=== PATIENT | female | born 1955 ===

== ENCOUNTER 2016-07-10 09:49 | Inpatient (IN) | payer OTHER ==
[~2016-07-10 09:49] MED LIST: Buffered Lidocaine 1% SYR 3ML* 3 ML/SYR SYRINGE INTRADERM ONE; Famotidine TAB* 20 MG ONE; Famotidine TAB* 20 MG PO ONE; Gabapentin CAP(*) 300 MG ONE; Gabapentin CAP(*) 400 MG PO ONE; Ibuprofen TAB* 400 MG ONE; Ibuprofen TAB* 800 MG PO ONE; Metoclopramide TAB* 10 MG ONE; Metoclopramide TAB* 10 MG PO ONE; Sodium Citrate/Citric Acid* 15 ML UDC ONE; Sodium Citrate/Citric Acid* 15 ML UDC PO ONE; ceFAZolin 2 GM PREMIX(*) 2 GM/50 ML BAG IVPB ONE
[2016-07-10] MEDS ORDERED: fentaNYL* 50 MCG/ML 2 ML VIAL (100 MCG VIAL) ONE (12:13)
[2016-07-10] MEDS ORDERED: Midazolam* 1 MG/ML 5 ML VIAL (5 MG) ONE (12:13)
[2016-07-10] MEDS ORDERED: Morphine PF AMP (0.5MG/ML)* 5 MG/10 ML AMP ONE (12:15)
[2016-07-10] MEDS ORDERED: Propofol* 500 MG/50 ML BTL ONE (12:35)
[2016-07-10] MEDS ORDERED: EPHEDrine (Pressors)* 50 MG/ML VIAL ONE (12:42)
[2016-07-10] MEDS ORDERED: Ondansetron INJ* 2 MG/ML VIAL IV PRN (13:08)
[2016-07-10] MEDS ORDERED: DiMENhydriNATE IV* 50 MG/ML VIAL IV PUSH PRN (13:08)
[2016-07-10] MEDS ORDERED: Naloxone* 0.4 MG/ML 1 ML VIAL IV PRN (13:08)
[2016-07-10] MEDS ORDERED: Nalbuphine* 20 MG/ML 1 ML VIAL IV PRN (13:08)
[2016-07-10] MEDS ORDERED: Acetaminophen IV 1GM/100ML * 10 MG/ML VIAL IVPB ONE (13:13)
[2016-07-10] MEDS ORDERED: Bisacodyl SUPP* 10 MG SUPP PR PRN (14:52)
[2016-07-10] MEDS ORDERED: Polyethylene Glycol 3350* 17 GM PACKET PO PRN (14:52)
--- NOTE | 2016-07-10 15:34 | RAD ---
INDICATION: Status post right hip arthroplasty COMPARISON: June 14, 2016 TECHNIQUE: A single AP view of the pelvis is submitted. FINDINGS: Osseous structures: There is interval right hip arthroplasty. The prosthesis appears normally seated on the AP view. There is an existing left hip prosthesis which is imaged in part SI joints and symphysis: Intact Soft tissues: Soft tissue changes compatible with recent hip arthroplasty Other: None IMPRESSION: RIGHT HIP ARTHROPLASTY.
[2016-07-10] MEDS ORDERED: Ondansetron INJ* 2 MG/ML VIAL ONE (16:13)
[2016-07-10] MEDS: D5W 1/2 NS 1000 ML BAG* 1,000 ML IV SCH (16:20)
[2016-07-10] MEDS: Ibuprofen TAB* 800 MG PO SCH ×2 (16:42→19:44)
[2016-07-10] MEDS ORDERED: Warfarin TAB(*) 4 MG PO ONE (17:00)
[2016-07-10] MEDS: oxyCODONE/Acetamin 5/325 MG* TAB PO PRN ×2 (18:38→22:45)
[2016-07-10] MEDS: Docusate CAP* 100 MG PO SCH (19:45)
[2016-07-10] MEDS: Ferrous Sulfate TAB* 325 MG PO SCH (19:45)
[2016-07-10] MEDS: Magnesium Hydroxide LIQ* 30 ML UDC PO SCH (19:50)
[2016-07-10] MEDS: ceFAZolin 1 GM in Dextrose (*) 1 GM/50 ML BAG IVPB SCH (19:51)
--- NOTE | 2016-07-11 01:33 | OP ---
DATE OF OPERATION: 07/10/16 - ROOM #342 DATE OF : 53 SURGEON: Michael Patrick MD PHOTOVOLTAIC INSTALLER: Vanessa Shaw RPA ANESTHESIOLOGIST: Michael Bernstein MD ANESTHESIA: Spinal and sedation. PRE-OP DIAGNOSIS: Osteoarthritis, right hip. POST-OP DIAGNOSIS: Osteoarthritis, right hip. OPERATIVE PROCEDURE: Right total hip arthroplasty. INDICATIONS: Ms. Lowe is a 61-year-old female, who had undergone a left total hip arthroplasty a few years ago. This had worked well where she had been able to get back to work, do activities, and is pleased with the hip. She presented to the office last month, complaining now of right hip pain and was very interested in getting the right hip replaced. Her right hip had some wear previously and we discussed that when it is bad enough that she should let us know. X-rays showed she has bone on bone with sclerosis, cyst, and spur formation and I discussed with her that a right total hip arthroplasty should work well to decrease her pain and improve her function. Risks of surgery such as infection, scar formation, stiffness, DVT, pulmonary embolism, hardware failure, and leg length discrepancy were some of the risks discussed. She had been declared medically optimized and wished to proceed. ESTIMATED BLOOD LOSS: 250 cc. COMPLICATIONS: None. HARDWARE: Dev #9 M/L taper, 50-mm Continuum cup, 15-degree elevated liner, vitamin E impregnated, +0 32-mm femoral head. DESCRIPTION OF PROCEDURE: The patient was brought to the OR and spinal anesthesia was introduced. This was done in the left lateral decubitus position and she was quite comfortable in that spot. Scott catheter was placed laterally. I made sure she was properly secured to the pegboard and the right hip area, which was prepped and then draped. Incision was made, centered over the greater trochanter extending proximally and distally for about 7 to 8 cm. Incision was carried down through the skin and subcutaneous fat. Eventually greater trochanter was felt and I continued heading in that direction. Fat was cleared off the fascia and fascia was sharply incised and more proximally fascia was incised and then the gluteus musculature underneath was bluntly split using finger dissection. Bursa was taken down using electrocautery and with internal rotation, I could get some exposure of the short external rotators. Palpation was easier than visualization because the fat kept folding inwards. Charnley retractor had been placed. Sharp Hohmann was placed under the gluteus medius/gluteus minimus and with palpation, I had good feel for piriformis. Electrocautery was used to take down piriformis and a little bit of gemelli and into capsule. T-capsulotomy was made and the hip was then easily dislocated. Cutting guide was used to puneet the femoral neck and a nice femoral neck cut was taken. Anterior C-retractor was then placed and the proximal femur was then pushed a bit anteriorly giving better exposure to the acetabulum. Broad Hohmann was placed along the inferior aspect and this actually gave me fairly good exposure. Labrum was sharply taken down, beginning with a 44 reamer, she was deepened a little bit and then progressively expanded. She had a 50 on the opposite side and templating had also confirmed that a 50 should fit nicely on this side. She was progressively expanded to a 48 and then at 49, it could be seen where I was taking a little bit of that lateral wall down. 50-mm cup was called for and a 50 cup was then impacted into place. Wonderful solid bite was obtained. Two screws were placed and a good bite was obtained with the screws as well. Trial liner was placed and attention was turned to the proximal femur. Box osteotome was used to open the femoral canal and the intramedullary guide was placed. Beginning with a 5 broach, she was first lateralized quite a bit and then the 5 was countersunk. This continued to the 9 and the 9, I thought, sat perfectly; and I could see where, even though I templated her to a 10, I was not thrilled to just go ahead and push to a 10, as the 9 really seemed to have a solid bite. She was then trialed with a standard neck and a 0 head and she could be hyperflexed without any troubles, brought into extension and external rotation but with adduction and internal rotation, she came out fairly quickly. Elevated liner was placed and this worked to improve for stability quite a bit. Hip was then dislocated and both times the 9 broach was not at all loose. Therefore, decision was made to stay with a 9 stem on this side as well. Trial liner was removed and an elevated liner was impacted into place. 9 stem was also impacted into place and I did try to get a 0 head. When I tried with a trial 0 head at first but instead of jumping over the elevated rim, it would roll along the inferior aspect and then would seem to push and I did not want to have the head pushed into the pelvis. Therefore, since I thought her surgery had gone very close to the preoperative planning and what she had on the left side, 0 head was called for and impacted into place. I was better able to guide the head in and her leg length did appear to be quite good. She also had excellent stability where she was brought into full adduction and 90 degrees of internal rotation without any instability. Similarly, she could be brought into extension and full external rotation without the head levering out. Wound was copiously pulse lavaged and piriformis capsule and short external rotators were repaired to the back side of the greater trochanter. Fascia was repaired using interrupted #1 Vicryl sutures. Wound was again copiously pulse lavaged and the layers of fat were repaired in layers. Skin was closed using la nena. Sterile dressing was applied. The patient was then rolled on to the hospital bed and was stable on transfer to the recovery room. [id number]/[facility] #: [id number] MTDD
[2016-07-11] MEDS: D5W 1/2 NS 1000 ML BAG* 1,000 ML IV SCH (02:29)
[2016-07-11] MEDS: Ibuprofen TAB* 800 MG PO SCH (02:55)
[2016-07-11] MEDS: oxyCODONE/Acetamin 5/325 MG* TAB PO PRN ×6 (02:56→23:57)
[2016-07-11] MEDS ORDERED: Acetaminophen TAB* 325 MG PO PRN (04:10)
[2016-07-11] MEDS ORDERED: Morphine INJ* 10 MG/ML 1 ML SYRINGE IV PRN (04:10)
[2016-07-11] MEDS ORDERED: Ondansetron TAB* 4 MG PO PRN (04:10)
[2016-07-11] MEDS ORDERED: Ondansetron INJ* 2 MG/ML VIAL IV PRN (04:10)
[2016-07-11] MEDS ORDERED: diPHENhydraMINE IV* 50 MG/ML 1 ml VIAL (BENADRYL) IV PRN (04:10)
[2016-07-11] MEDS ORDERED: oxyCODONE/Acetamin 5/325 MG* TAB PO PRN (04:10)
[2016-07-11] MEDS: ceFAZolin 1 GM in Dextrose (*) 1 GM/50 ML BAG IVPB SCH ×2 (05:00→12:38)
[2016-07-11 06:02] LABS: Hematocrit 36 % (35-47); Hemoglobin 12.3 g/dl (12.0-16.0)
[2016-07-11 06:18] LABS: BUN/Creatinine Ratio 12.4 (8-20); Calcium 8.5 mg/dL (8.6-10.3); EGFR African American 68.3 (>60); EGFR Non-African American 53.1 (>60); Potassium 4.1 mmol/L (3.5-5.0)
[2016-07-11] MEDS ORDERED: NS 0.9% 1000 ML* 1,000 ML IV ONE (07:15)
[2016-07-11] MEDS: Ferrous Sulfate TAB* 325 MG PO SCH ×2 (08:30→20:02)
[2016-07-11] MEDS: Docusate CAP* 100 MG PO SCH ×2 (08:30→20:02)
[2016-07-11] MEDS: Magnesium Hydroxide LIQ* 30 ML UDC PO SCH ×2 (08:30→20:02)
[2016-07-11] MEDS: Vitamin THERAPEUTIC TAB PO SCH (08:30)
--- NOTE | 2016-07-11 09:32 | PN ---
Progress Note - Progress Note SOAP: Subjective: []Patient seen OOB in her chair. Did not sleep well due to insomnia but otherwise feels well. Her pain is well managed. Hurst still in due to low urine output, fluid bolus running. Denies SOB, CP or dizziness. She is hoping that she will be able to go home tomorrow. Objective: [] Vital Signs Temp 98.2 F 07/11/16 07:57 Pulse 88 07/11/16 07:57 Resp 20 07/11/16 08:33 BP 102/67 07/11/16 07:57 Pulse Ox 94 07/11/16 07:57 Intake & Output 07/10/16 07/11/16 07/11/16 18:59 06:59 18:59 Intake Total 3850 1988 1000 Output Total 1300 550 Balance 2550 1439 1000 Weight 214 lb Intake: IV Fluids 3850 975 D5W 1/2 NS 975 LR 3800 NS 50ML, Cefazolin 2G 50 IVPB 54 1000 ABX - CEFAZOLIN 54 NS 1000 Oral 960 Output: Hurst 1100 550 Estimated Blood Loss 200 Other: # Bowel Movements 0 Vital Signs Temp 98.2 F 07/11/16 07:57 Pulse 88 07/11/16 07:57 Resp 20 07/11/16 08:33 BP 102/67 07/11/16 07:57 Pulse Ox 94 07/11/16 07:57 Intake & Output 07/10/16 07/11/16 07/11/16 18:59 06:59 18:59 Intake Total 3850 1988 1000 Output Total 1300 550 Balance 2550 1439 1000 Weight 214 lb Intake: IV Fluids 3850 975 D5W 1/2 NS 975 LR 3800 NS 50ML, Cefazolin 2G 50 IVPB 54 1000 ABX - CEFAZOLIN 54 NS 1000 Oral 960 Output: Hurst 1100 550 Estimated Blood Loss 200 Other: # Bowel Movements 0 Right hip dressing is dry and intact calf non tender and soft + DF/PF right ankle neurovascularly intact Assessment: []s/p Right total hip arthroplasty POD #1 Plan: []PT/OT WBAT RLE D/C hurst catheter when urine output rebounds Coumadin with heparin bridge, 8 mg today Possible discharge home tomorrow if she continues to do well and urine output normalizes.
[2016-07-11] MEDS: Heparin VIAL(*) 5000 UNITS/ML VIAL (FIVE THOUSAND) SUBCUT SCH ×2 (15:20→20:02)
[2016-07-11] MEDS ORDERED: Warfarin TAB(*) 4 MG PO ONE (17:00)
[2016-07-12] MEDS: oxyCODONE/Acetamin 5/325 MG* TAB PO PRN ×3 (04:05→13:13)
[2016-07-12 07:03] LABS: Hematocrit 34 % (35-47); Hemoglobin 11.3 g/dl (12.0-16.0)
[2016-07-12] MEDS: Heparin VIAL(*) 5000 UNITS/ML VIAL (FIVE THOUSAND) SUBCUT SCH (08:24)
[2016-07-12] MEDS: Docusate CAP* 100 MG PO SCH (08:28)
[2016-07-12] MEDS: Magnesium Hydroxide LIQ* 30 ML UDC PO SCH (08:28)
[2016-07-12] MEDS: Vitamin THERAPEUTIC TAB PO SCH (08:29)
[2016-07-12] MEDS: Ferrous Sulfate TAB* 325 MG PO SCH (08:29)
[2016-07-12 11:15] VITALS: BP 120/69
--- NOTE | 2016-07-12 14:47 | DS ---
DISCHARGE SUMMARY: DATE OF ADMISSION: 07/10/16 DATE OF DISCHARGE: 07/12/16 ATTENDING PHYSICIAN: Michael Patrick MD ADMISSION DIAGNOSIS: Osteoarthritis, right hip. DISCHARGE DIAGNOSIS: Osteoarthritis, right hip. SURGERY PERFORMED: Right total hip arthroplasty. HOSPITAL COURSE: The patient is a 61-year-old female, who previously underwent left total hip arthroplasty a few years ago. She did very well with her left hip and developed end-stage degenerative arthritis of the right hip. She had significant decrease in her activities of daily living due to right hip pain. She failed conservative management for the right hip and elected to proceed with surgical intervention. She was taken to the operating room under the care of Dr. Michael Patrick, on the date of 07/20/16 for the above mentioned procedure. She tolerated the procedure well and left the operating room in stable condition. Postoperatively, she progressed very well with her physical therapy and occupational therapy goals. She had no acute postoperative difficulties. Her pain was well managed. She is currently therapeutic on the Coumadin for DVT prophylaxis at an INR of 2.22 today. It was felt that she was medically and orthopedically stable for discharge to home on the date of . CONDITION ON DISCHARGE: Review of the chart, she is afebrile. Her vital signs are stable. Her incision is healing without evidence of infection. She had moderate ecchymosis superior and inferior to her incision with some mild swelling. Her calf is soft and nontender. She has active dorsiflexion and plantarflexion. PLAN: Discharged to home with Coumadin to be taken for DVT prophylaxis. She is instructed to take 4 mg of Coumadin, 07/12/16. She will have an INR draw on , 07/13/16 with subsequent dosages to follow. A prescription of Percocet and Colace were also called into her pharmacy. She may continue to bear weight as tolerated on the right lower extremity and will continue with her physical therapy exercises. Jefferson will be removed at roughly the 2-week puneet by a visiting home nurse. She is instructed to call the office if she has any noted redness, drainage at her incision, fever, chills , noted calf pain, or swelling; shortness of breath or chest pain. She will otherwise follow up with Dr. Patrick, in roughly 3 to 4 weeks in the office. KEVIN CHAVEZ [id number]/[facility] #: [id number] [facility] H[facility]PITALAshtyn
== END 2016-07-12 14:30 | disposition home health service (06) | DRG 470 ==
LOC: AA 09:49 → SSU 15:47
PROVIDERS: ADMIT Orthopaedic Surgery; ATTEND Orthopaedic Surgery
PROC: 0SR902Z Replacement of Right Hip Joint with Metal on Polyethylene Synthetic Substitute, Open Approach (ICD-10-PCS; principal; 2016-07-10 11:00)
DX: M16.11 Unilateral primary osteoarthritis, right hip (principal); Z96.642 Presence of left artificial hip joint; M70.62 Trochanteric bursitis, left hip; Z87.891 Personal history of nicotine dependence; Z80.9 Family history of malignant neoplasm, unspecified; G47.00 Insomnia, unspecified
CPT/HCPCS: 36415; 72170; 80048; 85014; 85018; 85610; 88304; 88311; 94760; A9270-GY; C1713; C1776; J0690; J1240; J1644; J2250; J2405; J2704; J3010